=== PATIENT | female | born 1995 | race Caucasian/White ===

== ENCOUNTER 2019-03-17 03:29 | Emergency (ER) | payer SELFPAY ==
[~2019-03-17] VITALS: Ht 177.8 cm; Wt 89.0 kg
[2019-03-17 03:31] VITALS: BP 128/83
--- NOTE | 2019-03-17 04:03 | NUR ---
PT REPORTS HITTING BACK OF HEAD ON MARBLE COUNTER EARLIER THIS EVENING, DENIES LOC, DENIES N/V. PT STATES FAMILY MEMBER TRIED TO SUPERGLUE WOUND CLOSED. NO BLEEDING NOTED AT THIS TIME. PT C/O MILD MÁRQUEZ.
--- NOTE | 2019-03-17 04:04 | NUR ---
MED REC COMPLETE. PT DENIES TAKING ANY DAILY MEDICATIONS.
--- NOTE | 2019-03-17 04:11 | NUR ---
WOUND IRRIGATED AND HAIR AROUND LAC WASHED W/ WARM WATER, UNABLE TO REMOVE RESIDUE FROM GLUE R/T PT C/O INCREASED PAIN.
--- NOTE | 2019-03-17 04:34 | NUR ---
PT RECEIVED 3 PARVEEN TO LACERATION ON BACK OF HEAD. UPON RETURNING TO ROOM TO REVIEW DISCHARGE, PT NOT IN ROOM. CHECKED W/ REGISTRATION, STATED PT WALKED OUT OF ED WITHOUT STOPPING. ERP AWARE PT LEFT ED WITHOUT DISCHARGE PAPERWORK OR DISCHARGE VS.
== END 2019-03-17 04:38 | disposition home or self-care (01) ==
LOC: ED 04:32
DX: S01.01XA Laceration without foreign body of scalp, initial encounter (principal); F17.200 Nicotine dependence, unspecified, uncomplicated; W18.30XA Fall on same level, unspecified, initial encounter; Y93.89 Activity, other specified; Y92.009 Unspecified place in unspecified non-institutional (private) residence as the place of occurrence of the external cause; Y99.8 Other external cause status
CPT/HCPCS: 12001; 99283

== ENCOUNTER 2019-07-01 04:40 | Inpatient (IN) | payer OTHER ==
[~2019-07-01] VITALS: Ht 175.3 cm; Wt 95.6 kg
[2019-07-01] MEDS: ALBUTEROL/IPRATROPIUM 2.5MG/0.5MG, 3 ML NPPB SCH ×3 (05:31→20:27)
[2019-07-01 06:13] LABS: MEAN CORPUSCULAR HEMOGLOBIN 29.6 pg (27.0-34.8); MEAN CORPUSCULAR HGB CONC 32.7 g/dL (32.4-35.8); MEAN CORPUSCULAR VOLUME 90.7 fL (80-100); MEAN PLATELET VOLUME 8.2 fL (7.4-10.4); PLATELET COUNT 350 x10^3/uL (130-400); RED BLOOD COUNT 4.81 x10^6/uL (3.82-5.3); RED CELL DISTRIBUTION WIDTH 13.1 % (9.6-15.2)
[2019-07-01 06:18] LABS: ALBUMIN 2.8 g/dL (3.4-5.0); ANION GAP 5 mmol/L (5-15); CALCIUM 8.8 mg/dL (8.5-10.1); CHLORIDE 107 mmol/L (98-107); CREATININE 0.81 mg/dL (0.55-1.02)
[2019-07-01] MEDS ORDERED: SODIUM CHLORIDE 0.9% 1,000ML IVBOLUS ONE (06:30)
--- NOTE | 2019-07-01 06:36 | NUR ---
PT ON 3L O2 AND STILL IN LOW 90'S% O2 SATS. PT HAS NO C/O SOB JUST WEAKNESS. PT DENIED ANY WANTS OR NEEDS AT THIS TIME.
[2019-07-01 06:40] LABS: BASOPHILS # (AUTO) 0.05 x10^3/uL (0-0.1); BASOPHILS % (AUTO) 0 % (0-1); EOSINOPHILS # (AUTO) 2.65 x10^3/uL (0-0.4); EOSINOPHILS % (AUTO) 17 % (1-7); LYMPHOCYTES # (AUTO) 2.26 x10^3/uL (1-3.4); LYMPHOCYTES % (AUTO) 15 % (22-44); MD SCAN; MONOCYTES # (AUTO) 0.85 x10^3/uL (0.2-0.8); MONOCYTES % (AUTO) 6 % (2-9); NEUTROPHILS # (AUTO) 9.69 x10^3/uL (1.8-6.8); NEUTROPHILS % (AUTO) 63 % (42-75)
--- NOTE | 2019-07-01 07:07 | NUR ---
BEDSIDE REPORT RECIEVED FROM RUFUS RN. PT RESTING ON GURNEY AT THIS TIME, NAD NOTED. PT TO GO TO CT
--- NOTE | 2019-07-01 07:51 | NUR ---
PT SATING 88-90% ON 6L NC. ERMD UPDATED, ORDERS RECIEVED FOR RT TREATMENT
[2019-07-01] MEDS ORDERED: SODIUM CHLORIDE 0.9% 1,000 ML IV ONE (08:00)
[2019-07-01] MEDS ORDERED: OMNIPAQUE 350 MG/ML, 100ML BOTTLE ONE (08:22)
--- NOTE | 2019-07-01 08:22 | NUR ---
ER PROVIDER IN TO UPDATE PT ON POC, PT TO BE ADMITTED. AWAITING BC TO BE DRAWN TO ADMIN ABX
[2019-07-01] MEDS ORDERED: AZITHROMYCIN 500 MG in SODIUM CHLORIDE 0.9% 250 ML IV ONE (08:30)
[2019-07-01] MEDS ORDERED: CEFTRIAXONE PMX 1GM/50ML 50 ML IVPB ONE (08:30)
--- NOTE | 2019-07-01 08:48 | NUR ---
LAB IN TO DRAW BC.
--- NOTE | 2019-07-01 08:52 | NUR ---
REPORT TO RECIEVING RN
[2019-07-01] MEDS ORDERED: CEFTRIAXONE PMX 1GM/50ML 50 ML ONE (08:54)
[2019-07-01] MEDS ORDERED: ONDANSETRON 2MG/ML, 2ML IVPush PRN (09:00)
[2019-07-01] MEDS ORDERED: GUAIFENESIN/DM 200-20MG, 10ML UDC PO PRN (09:00)
[2019-07-01] MEDS ORDERED: hydrALAzine 20 MG/ML, 1ML IVPush PRN (09:00)
[2019-07-01] MEDS ORDERED: LABETALOL 5MG/ML, 20ML IVPush PRN (09:00)
[2019-07-01] MEDS ORDERED: DOCUSATE 100 MG CAPSULE PO PRN (09:00)
[2019-07-01] MEDS ORDERED: ACETAMINOPHEN 325 MG TABLET PO PRN (09:00)
[2019-07-01] MEDS: DOXYCYCLINE 100MG TABLET PO SCH ×2 (09:00→21:07)
[2019-07-01] MEDS ORDERED: POLYETHYLENE GLYCOL 17 GM PACKET PO PRN (09:00)
[2019-07-01] MEDS ORDERED: METOCLOPRAMIDE 5 MG/ML, 2ML IVPush PRN (09:00)
[2019-07-01 09:42] LABS: FREE T4 (FREE THYROXINE) 1.41 ng/dL (0.76-1.46)
[2019-07-01 10:03] VITALS: BP 121/84
[2019-07-01] MEDS: SODIUM CHLORIDE 0.9% 1,000 ML IV SCH ×2 (11:11→20:00)
[2019-07-01] MEDS: ENOXAPARIN 40 MG/0.4 ML SQ SCH (11:11)
[2019-07-01 14:18] LABS: AMPHETAMINE SCREEN, URINE Positive (Negative); BARBITURATE SCREEN, URINE Negative (Negative); BENZODIAZEPINE SCREEN, URINE Negative (Negative); CANNABINOID SCREEN, URINE Positive (Negative); COCAINE SCREEN, URINE Negative (Negative); METHADONE SCREEN, URINE Negative (Negative); OPIATE SCREEN, URINE Positive (Negative)
[2019-07-01 14:51] VITALS: BP 106/70
[2019-07-01 15:10] LABS: RAPID INFLUENZA A Negative (Negative); RAPID INFLUENZA B Negative (Negative)
[2019-07-01 20:53] VITALS: BP 119/62
[2019-07-01 23:14] VITALS: BP 110/72
[2019-07-02 02:00] VITALS: BP 110/72
[2019-07-02] MEDS: ALBUTEROL/IPRATROPIUM 2.5MG/0.5MG, 3 ML NPPB SCH (06:32)
[2019-07-02] MEDS ORDERED: ALBUTEROL SULFATE 2.5 MG/3 ML NPPB PRN (07:00)
[2019-07-02 08:59] VITALS: BP 131/84
[2019-07-02] MEDS ORDERED: CEFTRIAXONE PMX 1GM/50ML 50 ML IV SCH (09:00)
[2019-07-02] MEDS: DOXYCYCLINE 100MG TABLET PO SCH (09:39)
[2019-07-02] MEDS: SODIUM CHLORIDE 0.9% 1,000 ML IV SCH ×2 (09:39→20:00)
[2019-07-02] MEDS: ENOXAPARIN 40 MG/0.4 ML SQ SCH (09:39)
[2019-07-02 10:11] LABS: BASOPHILS # (AUTO) 0.06 x10^3/uL (0-0.1); BASOPHILS % (AUTO) 0 % (0-1); EOSINOPHILS # (AUTO) 0.74 x10^3/uL (0-0.4); EOSINOPHILS % (AUTO) 5 % (1-7); LYMPHOCYTES # (AUTO) 3.58 x10^3/uL (1-3.4); LYMPHOCYTES % (AUTO) 26 % (22-44); MD NO; MEAN CORPUSCULAR HEMOGLOBIN 29.6 pg (27.0-34.8); MEAN CORPUSCULAR HGB CONC 32.6 g/dL (32.4-35.8); MEAN CORPUSCULAR VOLUME 90.9 fL (80-100); MONOCYTES # (AUTO) 0.56 x10^3/uL (0.2-0.8); MONOCYTES % (AUTO) 4 % (2-9); NEUTROPHILS # (AUTO) 9.09 x10^3/uL (1.8-6.8); NEUTROPHILS % (AUTO) 65 % (42-75); PLATELET COUNT 335 x10^3/uL (130-400); RED BLOOD COUNT 4.38 x10^6/uL (3.82-5.3); RED CELL DISTRIBUTION WIDTH 13.4 % (9.6-15.2)
[2019-07-02 10:20] LABS: ANION GAP 9 mmol/L (5-15); CHLORIDE 112 mmol/L (98-107); CREATININE 0.65 mg/dL (0.55-1.02)
[2019-07-02 14:40] VITALS: BP 132/91
[2019-07-02] MEDS ORDERED: POTASSIUM PHOSPHATE 22 MEQ in SODIUM CHLORIDE 0.9% 500 ML IV ONE (16:00)
[2019-07-02] MEDS ORDERED: MAGNESIUM SULFATE PMX 2GM/50ML 50 ML IV ONE (16:00)
[2019-07-02] MEDS ORDERED: POTASSIUM CHLORIDE 20 MEQ TAB.ER.PRT PO ONE (16:00)
[2019-07-02 19:56] VITALS: BP 127/86
== END 2019-07-02 22:05 | disposition left against medical advice (07) | DRG 871 ==
LOC: ED 05:26 → EDIP 08:15 → 4WST 09:49
PROVIDERS: ADMIT Internal Medicine; ATTEND Internal Medicine
DX: A41.9 Sepsis, unspecified organism (principal); J96.01 Acute respiratory failure with hypoxia; J18.9 Pneumonia, unspecified organism; J45.901 Unspecified asthma with (acute) exacerbation; E87.6 Hypokalemia; Z53.29 Procedure and treatment not carried out because of patient's decision for other reasons; J45.909 Unspecified asthma, uncomplicated; Z72.0 Tobacco use; Z71.6 Tobacco abuse counseling
CPT/HCPCS: 36415; 84145; 87400; 96361; 96374; 99291; J7620; 71045; 71275; 80048; 80307; 82040; 83605; 83735; 84100; 84439; 84443; 84703; 85025; 85379; 87040; 87070; 87205; 93005; 94640; G0378; J0456; J0696; J1650; Q9967; J7030; J7040; J7050; J7512

== ENCOUNTER 2019-07-10 12:47 | Inpatient (IN) | payer OTHER ==
[~2019-07-10] VITALS: Ht 175.3 cm; Wt 96.2 kg
--- NOTE | 2019-07-10 13:47 | NUR ---
SPO2=87% ON ROOM AIR IN TRAIGE. OXYGEN APPLIED VIA NASAL CANNULA AT 3LPM. SPO2=92% NOW.
[2019-07-10 14:30] LABS: MEAN CORPUSCULAR HEMOGLOBIN 29.4 pg (27.0-34.8); MEAN CORPUSCULAR HGB CONC 32.9 g/dL (32.4-35.8); MEAN CORPUSCULAR VOLUME 89.4 fL (80-100); MEAN PLATELET VOLUME 8.8 fL (7.4-10.4); PLATELET COUNT 384 x10^3/uL (130-400); RED BLOOD COUNT 4.86 x10^6/uL (3.82-5.3); RED CELL DISTRIBUTION WIDTH 13.9 % (9.6-15.2)
[2019-07-10 14:37] LABS: ALBUMIN 3.1 g/dL (3.4-5.0); ANION GAP 6 mmol/L (5-15); CALCIUM 8.6 mg/dL (8.5-10.1); CHLORIDE 111 mmol/L (98-107)
[2019-07-10 14:42] LABS: ALANINE AMINOTRANSFERASE 18 U/L (12-78); ALKALINE PHOSPHATASE 88 U/L (45-117); BILIRUBIN,TOTAL 0.4 mg/dL (0.2-1.0); CREATININE 0.68 mg/dL (0.55-1.02); TOTAL PROTEIN 7.1 g/dL (6.4-8.2)
[2019-07-10 14:58] LABS: BASOPHILS # (AUTO) 0.12 x10^3/uL (0-0.1); BASOPHILS % (AUTO) 1 % (0-1); EOSINOPHILS # (AUTO) 2.88 x10^3/uL (0-0.4); EOSINOPHILS % (AUTO) 23 % (1-7); LYMPHOCYTES # (AUTO) 2.43 x10^3/uL (1-3.4); LYMPHOCYTES % (AUTO) 19 % (22-44); MD SCAN; MONOCYTES # (AUTO) 0.68 x10^3/uL (0.2-0.8); MONOCYTES % (AUTO) 6 % (2-9); NEUTROPHILS # (AUTO) 6.42 x10^3/uL (1.8-6.8); NEUTROPHILS % (AUTO) 51 % (42-75)
[2019-07-10] MEDS ORDERED: CEFTRIAXONE PMX 1GM/50ML 50 ML IVPB ONE (15:00)
[2019-07-10] MEDS ORDERED: SODIUM CHLORIDE FLUSH 10ML SYR IVF ONE (15:00)
--- NOTE | 2019-07-10 15:04 | NUR ---
PT TO ROOM AT THIS TIME. PT WAS ADMITTED HERE A FEW DAYS AGO BUT LEFT AMA DUE TO A FAMILY EMERGENCY. PT IS 92% ON 4LITERS VIA NC. BLOOD DRAWN. X RAY TAKEN. CALL LIGHT WITHIN REACH
--- NOTE | 2019-07-10 15:16 | NUR ---
RT attempted x1 @[id number]
[2019-07-10] MEDS ORDERED: CEFTRIAXONE PMX 1GM/50ML 50 ML ONE (15:18)
[2019-07-10] MEDS ORDERED: ALBUTEROL SULFATE 2.5 MG/3 ML ONE (15:23)
[2019-07-10] MEDS: AZITHROMYCIN 500 MG in SODIUM CHLORIDE 0.9% 250 ML IV ONE ×2 (15:23→16:30)
[2019-07-10] MEDS ORDERED: ALBUTEROL SULFATE 2.5 MG/3 ML NPPB ONE (15:30)
[2019-07-10] MEDS: methylPREDNISolone SOD SUCC 40 MG/ML IVPush SCH ×2 (16:13→22:33)
[2019-07-10] MEDS ORDERED: ACETAMINOPHEN 325 MG TABLET PO PRN (16:30)
[2019-07-10] MEDS ORDERED: GUAIFENESIN/DM 200-20MG, 10ML UDC PO PRN (16:30)
[2019-07-10] MEDS ORDERED: ONDANSETRON ODT 4 MG PO PRN (16:30)
[2019-07-10] MEDS ORDERED: DOCUSATE 100 MG CAPSULE PO PRN (16:30)
--- NOTE | 2019-07-10 16:57 | NUR ---
PT RESTING IN [facility]. WATCHING TV. NO NEEDS AT THIS TIME
[2019-07-10 19:15] VITALS: BP 123/71
[2019-07-10] MEDS: SODIUM CHLORIDE 0.9% 1,000 ML IV SCH (19:26)
[2019-07-10] MEDS: ALBUTEROL SULFATE 2.5 MG/3 ML NPPB SCH (20:00)
[2019-07-10] MEDS: ENOXAPARIN 40 MG/0.4 ML SQ SCH (20:21)
[2019-07-11 00:02] VITALS: BP 113/70
[2019-07-11] MEDS: methylPREDNISolone SOD SUCC 40 MG/ML IVPush SCH ×4 (04:26→22:42)
[2019-07-11 06:00] LABS: BASOPHILS # (AUTO) 0.03 x10^3/uL (0-0.1); BASOPHILS % (AUTO) 0 % (0-1); EOSINOPHILS % (AUTO) 0 % (1-7); LYMPHOCYTES # (AUTO) 0.83 x10^3/uL (1-3.4); LYMPHOCYTES % (AUTO) 7 % (22-44); MD NO; MEAN CORPUSCULAR HEMOGLOBIN 29.1 pg (27.0-34.8); MEAN CORPUSCULAR HGB CONC 32.6 g/dL (32.4-35.8); MEAN CORPUSCULAR VOLUME 89.2 fL (80-100); MEAN PLATELET VOLUME 9.1 fL (7.4-10.4); MONOCYTES # (AUTO) 0.17 x10^3/uL (0.2-0.8); MONOCYTES % (AUTO) 1 % (2-9); NEUTROPHILS # (AUTO) 10.87 x10^3/uL (1.8-6.8); NEUTROPHILS % (AUTO) 91 % (42-75); PLATELET COUNT 388 x10^3/uL (130-400); RED BLOOD COUNT 4.93 x10^6/uL (3.82-5.3); RED CELL DISTRIBUTION WIDTH 13.7 % (9.6-15.2)
[2019-07-11 06:13] LABS: ANION GAP 6 mmol/L (5-15); CALCIUM 8.9 mg/dL (8.5-10.1); CHLORIDE 108 mmol/L (98-107); CREATININE 0.69 mg/dL (0.55-1.02)
[2019-07-11] MEDS: SODIUM CHLORIDE 0.9% 1,000 ML IV SCH ×2 (06:16→16:30)
[2019-07-11 06:42] VITALS: BP 116/80
[2019-07-11] MEDS ORDERED: PANTOPROZOLE 40MG TABLET PO SCH (07:30)
[2019-07-11] MEDS: ALBUTEROL SULFATE 2.5 MG/3 ML NPPB SCH ×4 (09:00→19:15)
[2019-07-11 13:16] VITALS: BP 137/81
[2019-07-11] MEDS ORDERED: AZITHROMYCIN 500 MG in SODIUM CHLORIDE 0.9% 250 ML IV SCH (15:00)
[2019-07-11] MEDS ORDERED: CEFTRIAXONE PMX 1GM/50ML 50 ML IV SCH (16:00)
[2019-07-11 19:03] VITALS: BP 128/72
[2019-07-11] MEDS: ENOXAPARIN 40 MG/0.4 ML SQ SCH (20:00)
[2019-07-12] MEDS: SODIUM CHLORIDE 0.9% 1,000 ML IV SCH
[2019-07-12 01:20] VITALS: BP 133/84
[2019-07-12] MEDS: methylPREDNISolone SOD SUCC 40 MG/ML IVPush SCH (04:17)
== END 2019-07-12 04:15 | disposition left against medical advice (07) | DRG 871 ==
LOC: ED 15:26 → EDIP 16:06 → 3N 19:19
PROVIDERS: ADMIT Emergency Medicine; ATTEND Emergency Medicine
DX: A41.9 Sepsis, unspecified organism (principal); J15.9 Unspecified bacterial pneumonia; J96.01 Acute respiratory failure with hypoxia; J45.901 Unspecified asthma with (acute) exacerbation; D72.1 Eosinophilia; F15.90 Other stimulant use, unspecified, uncomplicated; F17.200 Nicotine dependence, unspecified, uncomplicated; Z71.6 Tobacco abuse counseling; Z71.51 Drug abuse counseling and surveillance of drug abuser
CPT/HCPCS: 36415; 84145; 99285; J7613; 71046; 80048; 80053; 83605; 83735; 85025; 86631; 86632; 86635; 86738; 87040; 87070; 87205; 93005; 94640; G0378; J0456; J0696; J2920; J7030; J7050; J7512

== ENCOUNTER 2019-07-28 20:31 | Inpatient (IN) | payer OTHER ==
[~2019-07-28] VITALS: Ht 175.3 cm; Wt 92.4 kg
[2019-07-28] MEDS ORDERED: ALBUTEROL/IPRATROPIUM 2.5MG/0.5MG, 3 ML NPPB ONE (21:30)
[2019-07-28] MEDS ORDERED: ALBUTEROL/IPRATROPIUM 2.5MG/0.5MG, 3 ML ONE (21:45)
[2019-07-28 21:50] LABS: MEAN CORPUSCULAR HEMOGLOBIN 29.6 pg (27.0-34.8); MEAN CORPUSCULAR VOLUME 89.8 fL (80-100); MEAN PLATELET VOLUME 8.9 fL (7.4-10.4); PLATELET COUNT 245 x10^3/uL (130-400); RED BLOOD COUNT 5.09 x10^6/uL (3.82-5.3); RED CELL DISTRIBUTION WIDTH 15.1 % (9.6-15.2)
[2019-07-28] MEDS ORDERED: CEFTRIAXONE PMX 1GM/50ML 50 ML IV ONE (22:00)
[2019-07-28] MEDS ORDERED: AZITHROMYCIN 500 MG in SODIUM CHLORIDE 0.9% 250 ML IV ONE (22:00)
[2019-07-28 22:02] LABS: ANION GAP 9 mmol/L (5-15); CALCIUM 8.7 mg/dL (8.5-10.1); CHLORIDE 109 mmol/L (98-107); CREATININE 0.74 mg/dL (0.55-1.02)
[2019-07-28 22:08] LABS: BASOPHILS # (AUTO) 0.06 x10^3/uL (0-0.1); BASOPHILS % (AUTO) 0 % (0-1); EOSINOPHILS # (AUTO) 2.31 x10^3/uL (0-0.4); EOSINOPHILS % (AUTO) 15 % (1-7); LYMPHOCYTES # (AUTO) 1.65 x10^3/uL (1-3.4); LYMPHOCYTES % (AUTO) 11 % (22-44); MD SCAN; MONOCYTES # (AUTO) 0.71 x10^3/uL (0.2-0.8); MONOCYTES % (AUTO) 5 % (2-9); NEUTROPHILS # (AUTO) 10.58 x10^3/uL (1.8-6.8); NEUTROPHILS % (AUTO) 69 % (42-75)
[2019-07-28] MEDS ORDERED: CEFTRIAXONE PMX 1GM/50ML 50 ML ONE (22:09)
[2019-07-28] MEDS ORDERED: SODIUM CHLORIDE FLUSH 10ML SYR IVF ONE (22:30)
[2019-07-28] MEDS ORDERED: SODIUM CHLORIDE 0.9% 1,000ML IVBOLUS ONE (22:30)
--- NOTE | 2019-07-28 22:30 | NUR ---
Pt refusing IV at this time. Pt agreed to ultrasound IV, staff to place IV when available
[2019-07-28 23:40] VITALS: BP 127/77
[2019-07-29] MEDS ORDERED: ALBUTEROL/IPRATROPIUM 2.5MG/0.5MG, 3 ML NPPB SCH (01:30)
[2019-07-29] MEDS ORDERED: CEFTRIAXONE PMX 1GM/50ML 50 ML IV SCH (01:30)
[2019-07-29] MEDS: AZITHROMYCIN 500 MG in SODIUM CHLORIDE 0.9% 250 ML IV SCH (02:19)
[2019-07-29 02:49] VITALS: BP 116/80
[2019-07-29] MEDS: ALBUTEROL/IPRATROPIUM 2.5MG/0.5MG, 3 ML NPPB SCH ×6 (06:00→19:23)
[2019-07-29 08:30] VITALS: BP 129/91
[2019-07-29] MEDS: LORazepam 1MG TABLET PO PRN (09:16)
[2019-07-29 16:45] VITALS: BP 118/80
[2019-07-29 19:17] VITALS: BP 114/62
[2019-07-30] MEDS: ALBUTEROL/IPRATROPIUM 2.5MG/0.5MG, 3 ML NPPB SCH ×2 (00:01→11:18)
[2019-07-30 00:19] VITALS: BP 107/72
[2019-07-30 00:38] LABS: AMPHETAMINE SCREEN, URINE Positive (Negative); BARBITURATE SCREEN, URINE Negative (Negative); BENZODIAZEPINE SCREEN, URINE Negative (Negative); CANNABINOID SCREEN, URINE Negative (Negative); COCAINE SCREEN, URINE Negative (Negative); METHADONE SCREEN, URINE Negative (Negative); OPIATE SCREEN, URINE Negative (Negative)
[2019-07-30] MEDS ORDERED: methylPREDNISolone SOD SUCC 125 MG/2 ML IVPush ONE (01:00)
[2019-07-30] MEDS: AZITHROMYCIN 500 MG in SODIUM CHLORIDE 0.9% 250 ML IV SCH (02:00)
[2019-07-30 07:20] LABS: ANION GAP 7 mmol/L (5-15); CHLORIDE 108 mmol/L (98-107)
[2019-07-30 07:21] LABS: CREATININE 0.64 mg/dL (0.55-1.02)
[2019-07-30 07:23] VITALS: BP 111/73
[2019-07-30 07:50] LABS: MEAN CORPUSCULAR HEMOGLOBIN 29.5 pg (27.0-34.8); MEAN CORPUSCULAR HGB CONC 32.3 g/dL (32.4-35.8); MEAN CORPUSCULAR VOLUME 91.4 fL (80-100); MEAN PLATELET VOLUME 9.2 fL (7.4-10.4); PLATELET COUNT 281 x10^3/uL (130-400); RED BLOOD COUNT 4.95 x10^6/uL (3.82-5.3); RED CELL DISTRIBUTION WIDTH 15.1 % (9.6-15.2)
[2019-07-30 08:18] LABS: BASOPHILS # (AUTO) 0.02 x10^3/uL (0-0.1); BASOPHILS % (AUTO) 0 % (0-1); EOSINOPHILS # (AUTO) 0.02 x10^3/uL (0-0.4); EOSINOPHILS % (AUTO) 0 % (1-7); LYMPHOCYTES # (AUTO) 0.52 x10^3/uL (1-3.4); LYMPHOCYTES % (AUTO) 4 % (22-44); MD SCAN; MONOCYTES # (AUTO) 0.05 x10^3/uL (0.2-0.8); MONOCYTES % (AUTO) 0 % (2-9); NEUTROPHILS # (AUTO) 11.43 x10^3/uL (1.8-6.8); NEUTROPHILS % (AUTO) 95 % (42-75)
[2019-07-30] MEDS ORDERED: NEUTRA PHOS K 250 MG TABLET PO SCH (09:00)
[2019-07-30] MEDS: LORazepam 1MG TABLET PO PRN (12:10)
== END 2019-07-30 12:38 | disposition left against medical advice (07) | DRG 871 ==
LOC: ED 23:09 → EDIP 23:10 → 3N 23:38
PROVIDERS: ADMIT Family Medicine; ATTEND Internal Medicine
DX: A41.9 Sepsis, unspecified organism (principal); J15.9 Unspecified bacterial pneumonia; J96.01 Acute respiratory failure with hypoxia; J44.0 Chronic obstructive pulmonary disease with (acute) lower respiratory infection; F15.90 Other stimulant use, unspecified, uncomplicated; F17.210 Nicotine dependence, cigarettes, uncomplicated; Z63.8 Other specified problems related to primary support group; Z91.19 Patient's noncompliance with other medical treatment and regimen; Z83.3 Family history of diabetes mellitus
CPT/HCPCS: 36415; 71046; 80048; 80307; 83605; 83735; 84100; 84145; 85025; 87040; 94640; 96374; G0378; J0456; J0696; J2930; J7030; J7050